=== PATIENT | male | born 1980 | race American Indian/Alaskan Native ===

== ENCOUNTER 2018-12-15 05:46 | Day surgery (SDC) | payer OTHER ==
[2018-12-15] MEDS ORDERED: NACL BACTERIOSTATIC INFILTRATI ONE (05:48)
[2018-12-15] MEDS ORDERED: VERSED ONE (06:20)
[2018-12-15] MEDS ORDERED: SUBLIMAZE ONE ×2 (06:20→08:26)
[2018-12-15] MEDS ORDERED: DIPRIVAN 10 MG/ML IV ONE (06:20)
[2018-12-15] MEDS ORDERED: LACTATED RINGERS 1,000 ML ONE (06:29)
[2018-12-15] MEDS ORDERED: XYLOCAINE 1% 20 mL ONE (06:36)
[2018-12-15] MEDS ORDERED: MARCAINE 0.25% INFILTRATI ONE (06:37)
[2018-12-15] MEDS ORDERED: LACTATED RINGERS 1,000 ML IV SCH (07:00)
[2018-12-15] MEDS ORDERED: ANCEF/STERILE WATER 2 GM/20 ML IV NR (07:00)
[2018-12-15] MEDS ORDERED: NEO SYNEPHRINE/NS Syringe(OR USE) IV ONE (07:34)
[2018-12-15] MEDS ORDERED: NACL 0.9% IR ONE (07:43)
--- NOTE | 2018-12-15 08:25 | Discharge Summary ---
Short Stay Discharge Plan Activity: other (no straining ) Weight Bearing Status: Full Weight Bearing Diet: regular Wound: open to air, keep clean and dry, other (ice) Special Instructions: other (ice in r r) Durable Medical Equipment Needed Upon Discharge: other (ice) Follow up with: PRIMARY CARE, [Primary Care Provider] - 7 Days TAHIRA CALLEJAS MD [Staff Physician] - 12/17/18
--- NOTE | 2018-12-15 08:26 | Post Operative Note ---
Date of procedure: 12/15/18 Pre-op diagnosis: l hydrocele Post-op diagnosis: same Findings: as above Procedure: hydrocelectomy Anesthesia: GETA Surgeon: TAHIRA CALLEJAS Estimated blood loss: minimal Pathology: list (sac) Specimen disposition: to lab Condition: stable Disposition: PACU
--- NOTE | 2018-12-15 08:30 | Anesthesia Consultation ---
Anesthesia Consult and Med Hx Date of service: 12/15/18 - Airway Anesthetic Teeth Evaluation: Good ROM Head & Neck: Adequate Mental/Hyoid Distance: Adequate Mallampati Class: Class I Intubation Access Assessment: Good - Pulmonary Exam CTA: Yes - Cardiac Exam Cardiac Exam: RRR - Pre-Operative Health Status ASA Pre-Surgery Classification: ASA2 Proposed Anesthetic Plan: General - Pulmonary Hx Smoking: Yes (STOPPED 2016) Hx Asthma: No Hx Respiratory Symptoms: No Hx Sleep Apnea: No (SHAWN PRE SCREEN LOW RISK) - Cardiovascular System Hx Hypertension: No Hx Heart Attack/AMI: No - Central Nervous System Hx Seizures: No CVA: No - Gastrointestinal Hx Gastroesophageal Reflux Disease: No - Endocrine Hx Renal Disease: No Hx Liver Disease: No Hx Insulin Dependent Diabetes: No Hx Non-Insulin Dependent Diabetes: No Hx Thyroid Disease: No - Other Systems Hx Substance Use: Yes (MARIJUANA DAILY) Hx Cancer: No - Additional Comments Anesthesia Medical History Comments: No hx anesthetic complications.
--- NOTE | 2018-12-15 08:30 | Anesthesia Day of Surgery ---
Anesthesia Day of Surgery - Day of Surgery Patient Examined: Yes Patient H&P Reviewed: Yes Patient is NPO: Yes
[2018-12-15] MEDS ORDERED: TORADOL ONE (08:52)
[2018-12-15] MEDS ORDERED: TORADOL IV PRN (09:00)
[2018-12-15] MEDS: DILAUDID IV PRN ×2 (09:15→09:30)
--- NOTE | 2018-12-15 10:41 | Operative Report ---
PREOPERATIVE DIAGNOSIS: Large left hydrocele. POSTOPERATIVE DIAGNOSIS: Large left hydrocele. PROCEDURE: Left hydrocelectomy. SURGEON: Hussain Blunt MD ANESTHESIA: General. FINDINGS: This is a gentleman with large amount of fluid in the left scrotum. He now presents for hydrocelectomy. He has increasing discomfort. All risks and complications discussed. DESCRIPTION OF PROCEDURE: The patient was brought to the operating room and placed on the operating table. Following induction of anesthesia, prepped and draped in the supine position in usual sterile fashion. An oblique incision made over the left hemiscrotum, carried down to the scrotal fascia. We went through the scrotal fascia, tunica vaginalis. The vaginalis was freed of the surrounding fascial attachments and then opened. There was approximately 150 mL of clear yellow fluid. This was evacuated. A large amount of tunica was trimmed and oversewn with 3-0 chromic. A half-inch [place] drain was placed in the dependent portion of the scrotum. This was secured with a silk. The superficial tunica vaginalis was sutured with 3-0 chromic. Hemostasis was excellent. The testis was placed in its anatomical position. Superficial fascia was closed with 3-0 chromic, skin with 2-0 chromic, brought to recovery room, minimal blood loss, in stable condition. JOB# [id number] EDGAR/BERNARDINO
[2018-12-15 11:24] VITALS: BP 120/80
--- NOTE | 2018-12-15 13:31 | Post Anesthesia Evaluation ---
- Post Anesthesia Evaluation Patient Participated: Yes Airway Patent: Yes Stable Respiratory Function: Yes Nausea/Vomiting: No Temp > 96.8F: Yes Pain Manageable: Yes Adequeate Hydration: Yes Anesthesia Complications: No
== END 2018-12-15 10:55 | disposition home or self-care (01) ==
LOC: OR 05:46
PROVIDERS: ATTEND Urology
DX: N43.2 Other hydrocele (principal); H40.9 Unspecified glaucoma; G43.909 Migraine, unspecified, not intractable, without status migrainosus; Z98.890 Other specified postprocedural states; Z87.440 Personal history of urinary (tract) infections; Z87.891 Personal history of nicotine dependence
CPT/HCPCS: 55040; 88302; J0690; J1170; J1885; J2250; J2370; J2704; J3010; J7120